=== PATIENT | female | born 1990 | race Caucasian/White ===

== ENCOUNTER → 2023-07-25 | Day surgery (SDC) | payer BC, OTHER ==
[~2023-07-25] MED LIST: DEXAMETHASONE SOD PHOS INJ 4 MG/ML SDV ONE; FENTANYL CITRATE/PF 100MCG/2 ML INJ ONE; FLONASE ALLERG9.9 ML INH; GLYCOPYRROLATE INJ 0.2 MG/ML VIAL ONE; LIDOCAINE HCL 2% LOCAL INJ 5 ML SDV VIAL INJ ONE; MIDAZOLAM HCL 2 MG/2 ML VIAL ONE; OFLOXACIN 0.3% (OTIC SOL) 5 ML BTL ONE; ONDANSETRON HCL INJ 2MG/ML 2ML 2 MG/ML VIAL ONE; OXYMETAZOLINE HCL 0.05% NAS 1 SPRAY BTL ONE; PROPOFOL IV EMULSION 10 MG/ML 20 ML VIAL ONE; SEVOFLURANE INHAL SOLN 250 ML PEN BTL ONE; ZYRTEC10 M3
[2023-07-25] MEDS: LACTATED RINGER'S 1,000 ML ONE (06:50)
[2023-07-25 09:45] VITALS: BP 101/67; PULSE 67; RESP 16; O2SAT 100
== END | disposition home or self-care (01) ==
LOC: OR 05:44
PROVIDERS: ATTEND Otolaryngology Otolaryngology/Facial Plastic Surgery
DX: H65.23 Chronic serous otitis media, bilateral (principal); H91.8X3 Other specified hearing loss, bilateral; F17.210 Nicotine dependence, cigarettes, uncomplicated
CPT/HCPCS: 31237; 69436; 81025; 88305; 88342; J1100; J2001; J2250; J2405; J2704; J3010; J7121